=== PATIENT | female | born 1985 | race Caucasian/White ===

== ENCOUNTER 2018-01-02 11:22 | Emergency (ER) | payer OTHER ==
[~2018-01-02] VITALS: Ht 180.3 cm; Wt 81.7 kg
[~2018-01-02 11:22] MED LIST: AMOXICILLIN875 MG PO; FLAGYL500 MG PO; FLEXERIL PO; IBUPROFEN; NORCO 5-325 TA1 EACH PO; PEPCID AC20 M1 PO; PERCOCET 5-3251 EACH PO; PREDNISONE 20 M20 MG PO; PROTONIX40 MG PO; ULTRAM 50MG TAB50 MG PO; ZOFRAN ODT4 MG PO
[2018-01-02] MEDS ORDERED: NIZORAL120 ML TOP (11:51)
[2018-01-02 11:52] VITALS: BP 123/66
== END 2018-01-02 11:57 | disposition home or self-care (01) ==
LOC: M.ERS 11:22
DX: L21.9 Seborrheic dermatitis, unspecified (principal); F17.210 Nicotine dependence, cigarettes, uncomplicated; Z90.49 Acquired absence of other specified parts of digestive tract

== ENCOUNTER 2021-07-16 19:45 | Inpatient (IN) | payer OTHER ==
[~2021-07-16] VITALS: Ht 180.3 cm; Wt 90.7 kg
[~2021-07-16 19:45] MED LIST changes: +NIZORAL120 ML TOP
[2021-07-16 20:02] VITALS: BP 116/62
[2021-07-16 20:31] LABS: INFLUENZA A ANTIGEN Negative (Negative); INFLUENZA B ANTIGEN Negative (Negative)
[2021-07-16 20:33] LABS: URINE BLOOD 3+ (Negative); URINE CLARITY CLEAR; URINE COLOR YELLOW; URINE GLUCOSE-RANDOM NEGATIVE (Negative); URINE KETONES NEGATIVE (Negative); URINE LEUKOCYTES-REFLEX TRACE (Negative); URINE NITRITE-REFLEX NEGATIVE (Negative); URINE PROTEIN NEGATIVE (Negative); URINE SPECIFIC GRAVITY 1.015 (1.005-1.030)
[2021-07-16 20:40] LABS: ICTOTEST (BILI CONFIRMATORY) Negative (Negative); URINE BILIRUBIN 1+ (Negative)
[2021-07-16 20:45] LABS: HEMATOCRIT 37.1 % (37.0-47.0); HEMOGLOBIN 12.7 gm/dL (12.0-15.0); MCH 29.1 pg (26.0-34.0); MCHC 34.1 g/dL (28.0-37.0); MCV 85.2 fL (80.0-100.0); MPV 7.5 fl. (7.2-11.1); NUCLEATED RBCS 0 /100WBC; PLATELET COUNT* 232 thou/uL (150-400); RBC 4.36 mil/uL (4.20-5.00); RDW-CV 13.3 % (10.5-14.5); WBC 17.4 thou/uL (4.0-11.0)
[2021-07-16 20:46] LABS: CASTS None Seen /LPF (None Seen); MUCUS None Seen strn/LPF (None Seen); SQUAMOUS >10 Many /LPF (0-3)
[2021-07-16 20:47] LABS: CRYSTALS None Seen /LPF (None Seen); URINE WBC-REFLEX 0-5 Rare /HPF (0-5)
[2021-07-16 20:50] LABS: BACTERIA-REFLEX None Seen /HPF (None Seen)
[2021-07-16 20:52] LABS: CALCIUM 8.2 mg/dL (8.5-10.1); CREATININE 0.8 mg/dL (0.6-1.3); POTASSIUM 3.4 mmol/L (3.5-5.1)
[2021-07-16 20:54] LABS: AMP/METHAMP POSITIVE (Negative); BARBITURATES Negative (Negative); BENZODIAZEPINES Negative (Negative); COCAINE Negative (Negative); METHADONE Negative (Negative); OPIATES POSITIVE (Negative); PCP Negative (Negative); THC Negative (Negative)
[2021-07-16 20:58] LABS: ALBUMIN 3.5 g/dL (3.4-5.0); MAGNESIUM 1.5 mg/dL (1.8-2.4); TOTAL BILIRUBIN 2.8 mg/dL (<0.1-1.0); TOTAL PROTEIN 6.9 g/dL (6.4-8.2)
[2021-07-16 21:09] LABS: ACETAMINOPHEN < 2 ug/mL (10-30); ALCOHOL < 10 mg/dL (<10)
[2021-07-16 21:10] LABS: SALICYLATE < 2.8 mg/dL (2.8-20.0)
[2021-07-16 21:14] LABS: ABSOLUTE LYMPHOCYTES 0.3 thou/uL (0.8-5.3); ABSOLUTE MONOCYTES 0.5 thou/uL (0.0-1.2); ABSOLUTE NEUTROPHILS 16.5 thou/uL (1.6-8.1)
[2021-07-16 21:15] LABS: PLATELET ESTIMATE ADEQUATE
[2021-07-17 01:00] VITALS: BP 110/50
[2021-07-17 04:00] VITALS: BP 104/59
[2021-07-17 12:00] VITALS: BP 107/66
--- NOTE | 2021-07-17 12:47 | EKG ---
[place] [address] ELECTROCARDIOGRAM REPORT Name: KEREN NAQVI Room: [address] ADM IN .R.#: [id number] Admission: 07/16/21 Attend Phys: Tommie Lr Discharge: Date of : 89 Date of Service: 07/16/212031 Report #: [id number] THIS REPORT FOR: //name// [facility] ED Test Date: 2021-07-16 Test Time: 20:32:39 Pat Name: KEREN NAQVI Department: Room: [facility] Gender: F Treasury Analyst: ELENA : 1985 Requested By: Charlotte Hernandez Order Number: [id number] MD: Kojo Guy Measurements Intervals [place] Rate: 84 P: -15 DC: 126 QRS: 86 QRSD: 105 T: 43 QT: 381 QTc: 451 Interpretive Statements Sinus rhythm Minimal ST depression, inferior leads Baseline wander in lead(s) V2,V4,V5 No previous ECG available for comparison Electronically Signed On 07-17-2021 12:46:51 [employer] by Kojo Guy [email or web address] <ELECTRONICALLY SIGNED> By: Kojo Guy MD, [facility] 07/17/21 1246 31 31 Kojo Guy MD, [facility] /EPI
[2021-07-17 16:00] VITALS: BP 114/64
[2021-07-17 20:30] VITALS: BP 100/48
[2021-07-18 04:00] VITALS: BP 105/58
[2021-07-18 07:56] LABS: HEMATOCRIT 31.3 % (37.0-47.0); MCH 29.6 pg (26.0-34.0); MCHC 34.1 g/dL (28.0-37.0); MCV 86.7 fL (80.0-100.0); MPV 8.2 fl. (7.2-11.1); RBC 3.6 mil/uL (4.20-5.00); RDW-CV 12.9 % (10.5-14.5)
[2021-07-18 08:00] VITALS: BP 128/68
[2021-07-18 08:02] LABS: HEMOGLOBIN 10.7 gm/dL (12.0-15.0)
[2021-07-18 08:08] LABS: ALBUMIN 2.7 g/dL (3.4-5.0); CALCIUM 7.6 mg/dL (8.5-10.1); CREATININE 0.6 mg/dL (0.6-1.3); MAGNESIUM 1.9 mg/dL (1.8-2.4); POTASSIUM 3.2 mmol/L (3.5-5.1); TOTAL BILIRUBIN 0.6 mg/dL (<0.1-1.0); TOTAL PROTEIN 5.8 g/dL (6.4-8.2)
[2021-07-18 12:17] VITALS: BP 119/41
[2021-07-18] MEDS ORDERED: DORYX MPC120 MG PO (12:55)
[2021-07-18] MEDS ORDERED: VITAMIN C1000 MG PO (12:55)
[2021-07-18] MEDS ORDERED: VITAMIN D325 MC2 PO (12:55)
[2021-07-18] MEDS ORDERED: METRONIDAZOLE500 M4 PO (12:55)
[2021-07-18 12:57] VITALS: BP 119/41
[2021-07-18 13:08] VITALS: BP 119/41
[2021-07-18] MEDS ORDERED: ASA81BEC PO (18:53)
[2021-07-18] MEDS ORDERED: BACTRIM DS TAB1 EACH PO (20:41)
[2021-07-19 02:06] LABS: HEPATITIS B SURFACE AG Negative (Negative)
[2021-07-20 03:05] LABS: HIV-1/HIV-2 ANTIBODY Non Reactive (Non Reactive)
== END 2021-07-18 13:30 | disposition home or self-care (01) | DRG 872 ==
LOC: M.ERS 19:45 → M.TBA-ER 23:20 → M.2W 07-17 01:20
PROVIDERS: Physician Assistant; Student in an Organized Health Care Education/Training Program; ADMIT Internal Medicine; ATTEND Internal Medicine
PROC: B548ZZA Ultrasonography of Superior Vena Cava, Guidance (ICD-10-PCS; principal; 2021-07-16)
PROC: 02HV33Z Insertion of Infusion Device into Superior Vena Cava, Percutaneous Approach (ICD-10-PCS; principal; 2021-07-16)
DX: A41.9 Sepsis, unspecified organism (principal); L03.116 Cellulitis of left lower limb; K43.2 Incisional hernia without obstruction or gangrene; R51.9 Headache, unspecified; M54.2 Cervicalgia; A59.9 Trichomoniasis, unspecified; M79.10 Myalgia, unspecified site; K43.9 Ventral hernia without obstruction or gangrene; F17.210 Nicotine dependence, cigarettes, uncomplicated; D72.829 Elevated white blood cell count, unspecified; Z20.822 Contact with and (suspected) exposure to COVID-19; F11.10 Opioid abuse, uncomplicated; F15.10 Other stimulant abuse, uncomplicated; X19.XXXA Contact with other heat and hot substances, initial encounter; A59.00 Urogenital trichomoniasis, unspecified; T24.002A Burn of unspecified degree of unspecified site of left lower limb, except ankle and foot, initial encounter; R74.8 Abnormal levels of other serum enzymes; Z23 Encounter for immunization; Z79.899 Other long term (current) drug therapy; Y93.89 Activity, other specified; Y92.89 Other specified places as the place of occurrence of the external cause; Y99.8 Other external cause status; Z90.49 Acquired absence of other specified parts of digestive tract